=== PATIENT | male | born 1985 | race Caucasian/White ===

== ENCOUNTER 2024-09-14 20:16 | Observation (INO) | payer BC ==
[~2024-09-14] VITALS: Ht 155 cm; Wt 50.6 kg
[~2024-09-14 20:16] MED LIST: BACTRIM 400-801 EACH PO; CEFTRIAXONE2 G1 IV; CELLCEPT500 MG PO; PREDNISONE5 MG PO; SODIUM BICARBO650 MG PO; SUCRALFATE1 GM PO; TACROLIMUS0.5 M1 PO; TACROLIMUS1 M1 PO; TRAZODONE50 MG PO
[2024-09-14 20:50] VITALS: BP 138/99
[2024-09-14] MEDS ORDERED: MORPHINE Sulfate 2 MG/ML SYR IV ONE (23:05)
[2024-09-14] MEDS ORDERED: Ondansetron Hydrochloride 4 MG/2 ML VIAL IV ONE (23:05)
[2024-09-14] MEDS ORDERED: HYDROmorphone Hydrochloride 1 MG/ML SYR IM ONE (23:20)
[2024-09-14 23:31] LABS: BASO # 0.1 10*3/uL (0.0-0.1); BASO % 0.5 % (0.0-1.0); EOS # 0.1 10*3/uL (0.0-0.4); EOS % 0.8 % (1.0-4.0); HEMATOCRIT 29.4 % (42.0-52.0); MEAN CELL VOLUME 103.5 fl (80.0-94.0); MONO # 1.2 10*3/uL (0.1-1.0); MONO % 10.5 % (3.0-9.0); NEUT # 8.2 10*3/uL (2.3-7.9); NEUT % 73.8 % (47.0-73.0); PLATELET COUNT AUTOMATED 361 10*3/uL (130-400); RED BLOOD COUNT 2.84 10*6/uL (4.50-5.90); RED CELL DISTRI WIDTH 14.9 % (0-14.5); WHITE BLOOD COUNT 11.1 10*3/uL (4.8-10.8)
[2024-09-14] MEDS ORDERED: MYCOPHENOLIC A180 M1 PO (23:32)
[2024-09-14] MEDS ORDERED: ASPIRIN CHEWABL81 MG PO (23:34)
[2024-09-14] MEDS ORDERED: MAGNESIUM400 MG PO (23:34)
[2024-09-14] MEDS ORDERED: PROTONIX20 MG PO (23:35)
[2024-09-14] MEDS ORDERED: Rocaltrol0.25 MCG PO (23:35)
[2024-09-14] MEDS ORDERED: ELIQUIS2.5 M1 PO (23:36)
[2024-09-14 23:53] LABS: BUN 27 mg/dl (9-23); CHLORIDE 106 mmol/L (98-107); POTASSIUM 4.5 mmol/L (3.4-5.1)
[2024-09-15] MEDS ORDERED: SODIUM CHLORIDE 0.9% 1,000 ML IV ONE ×2 (00:40→07:20)
[2024-09-15] MEDS ORDERED: HYDROmorphone Hydrochloride 1 MG/ML SYR IV ONE ×3 (00:40→18:00)
[2024-09-15] MEDS ORDERED: Ondansetron Hydrochloride 4 MG/2 ML VIAL IV PRN (04:00)
[2024-09-15] MEDS ORDERED: BISACODYL 5 MG TAB PO PRN (04:00)
[2024-09-15] MEDS ORDERED: BISACODYL 10 MG SUPP R PRN (04:00)
[2024-09-15] MEDS ORDERED: ACETAMINOPHEN 325 MG TAB PO PRN (04:00)
[2024-09-15] MEDS ORDERED: TEMAZEPAM 15 MG CAP PO PRN (04:00)
[2024-09-15] MEDS ORDERED: Acetaminophen/Hydrocodone 5 MG/325 MG TABLET PO PRN (04:00)
[2024-09-15] MEDS ORDERED: ACETAMINOPHEN 650 MG SUPP R PRN (04:00)
[2024-09-15] MEDS ORDERED: Magnesium Hydroxide 30 ML UDC PO PRN (04:00)
[2024-09-15 05:13] VITALS: BP 134/90
[2024-09-15 06:32] LABS: BASO # 0.1 10*3/uL (0.0-0.1); BASO % 0.6 % (0.0-1.0); EOS # 0.2 10*3/uL (0.0-0.4); EOS % 1.8 % (1.0-4.0); MEAN CELL VOLUME 102.8 fl (80.0-94.0); MEAN CORPUSCULAR HGB 31.2 pg (27.0-31.0); MEAN CORPUSCULAR HGB CONC 30.3 g/dl (33.0-37.0); MEAN PLATELET VOLUME 7.8 fl (9.6-12.3); MONO # 0.9 10*3/uL (0.1-1.0); MONO % 10.8 % (3.0-9.0); NEUT # 5.4 10*3/uL (2.3-7.9); NEUT % 64.8 % (47.0-73.0); PLATELET COUNT AUTOMATED 299 10*3/uL (130-400); RED BLOOD COUNT 2.82 10*6/uL (4.50-5.90); RED CELL DISTRI WIDTH 15.1 % (0-14.5); WHITE BLOOD COUNT 8.3 10*3/uL (4.8-10.8)
[2024-09-15 06:54] LABS: CHOLESTEROL 124 mg/dL (<200); LDL CHOLESTEROL 74 mg/dL (9-159); TRIGLYCERIDES 46 mg/dl (<150)
[2024-09-15 06:55] LABS: POTASSIUM 4.6 mmol/L (3.4-5.1); TOTAL PROTEIN 6.2 gm/dL (6.0-8.0)
[2024-09-15] MEDS ORDERED: Pantoprazole Sodium 20 MG TAB PO SCH (07:30)
[2024-09-15] MEDS ORDERED: CALCITRIOL 0.25 MCG CAP PO SCH (10:00)
[2024-09-15] MEDS ORDERED: predniSONE 5 MG TAB PO SCH (10:00)
[2024-09-15] MEDS ORDERED: APIXABAN 2.5 MG TABLET PO SCH (10:00)
[2024-09-15] MEDS ORDERED: HYDROmorphone Hydrochloride 1 ML IV PRN (10:00)
[2024-09-15] MEDS ORDERED: MAGNESIUM OXIDE 400 MG TAB PO SCH (10:00)
[2024-09-15] MEDS ORDERED: ASPIRIN, CHEWABLE 81 MG TAB PO SCH (10:00)
[2024-09-15] MEDS ORDERED: Tacrolimus 1 MG CAP PO SCH (10:00)
[2024-09-15] MEDS ORDERED: SODIUM BICARBONATE 650 MG TAB PO SCH (10:00)
[2024-09-15] MEDS ORDERED: Mycophenolate Mofetil 250 MG CAP PO SCH (10:00)
[2024-09-15] MEDS ORDERED: HYDROmorphone Hydrochloride 1 MG/ML SYR IV PRN ×2 (10:20→11:59)
[2024-09-15 12:00] VITALS: BP 108/67
[2024-09-15 16:00] VITALS: BP 136/87
[2024-09-15] MEDS ORDERED: traZODone Hydrochloride 50 MG TAB PO SCH (22:00)
== END 2024-09-15 18:00 | disposition short-term general hospital (02) ==
LOC: ED 20:16 → 4E 09-15 00:06 → EDHOLD 09-15 00:06 → 4E 09-15 09:41
PROVIDERS: Emergency Medicine; Student in an Organized Health Care Education/Training Program; ADMIT Internal Medicine; ATTEND Internal Medicine
DX: R20.0 Anesthesia of skin (principal); I48.91 Unspecified atrial fibrillation; M79.601 Pain in right arm; D72.828 Other elevated white blood cell count; N17.0 Acute kidney failure with tubular necrosis; D53.9 Nutritional anemia, unspecified; R00.0 Tachycardia, unspecified; I72.1 Aneurysm of artery of upper extremity; I82.621 Acute embolism and thrombosis of deep veins of right upper extremity; G56.00 Carpal tunnel syndrome, unspecified upper limb; R60.9 Edema, unspecified; Z79.82 Long term (current) use of aspirin; Z79.01 Long term (current) use of anticoagulants; Z79.899 Other long term (current) drug therapy